=== PATIENT | male | born 1950 | race Hispanic/Latino ===

== ENCOUNTER 2018-01-22 07:00 | Day surgery (SDC) | payer OTHER ==
[2018-01-19 13:07] LABS: BASOPHILS % (AUTO) 0.5 % (0.0-5.0); EOSINOPHILS % (AUTO) 1.6 % (0.0-8.0); HEMATOCRIT 34.3 % (42-54); LYMPHOCYTES % (AUTO) 24.9 % (21.0-51.0); MEAN CORPUSCULAR HGB CONC 34.6 g/dL (32.0-36.0); MEAN CORPUSCULAR VOLUME 83.9 fL (79-99); MONOCYTES % (AUTO) 6.6 % (3.0-13.0); NEUTROPHILS % (AUTO) 66.4 % (40.0-77.0); PLATELET COUNT (AUTO) 200 K/uL (130-400); RED CELL DISTRIBUTION WIDTH 14.7 % (11.0-15.5); WHITE BLOOD COUNT (AUTO) 10.8 K/uL (4.8-10.8)
[2018-01-19 13:19] LABS: INR 1.74 (0.85-1.15); PARTIAL THROMBOPLASTIN TIME 25.4 SEC (26.3-35.5); PROTHROMBIN TIME 18.1 SEC (9.6-11.6)
[~2018-01-22] VITALS: Ht 170.2 cm; Wt 79.8 kg
[2018-01-22 07:05] VITALS: BP 99/54
[2018-01-22 07:25] LABS: BASOPHILS % (AUTO) 0.3 % (0.0-5.0); EOSINOPHILS % (AUTO) 1.2 % (0.0-8.0); HEMATOCRIT 33.5 % (42-54); LYMPHOCYTES % (AUTO) 17.7 % (21.0-51.0); MEAN CORPUSCULAR HEMOGLOBIN 28.9 pg (27.0-33.0); MEAN CORPUSCULAR HGB CONC 34.6 g/dL (32.0-36.0); MEAN CORPUSCULAR VOLUME 83.3 fL (79-99); MONOCYTES % (AUTO) 6.7 % (3.0-13.0); NEUTROPHILS % (AUTO) 74.1 % (40.0-77.0); NUCLEATED RED BLOOD CELLS 0.1 % (0.0-0.19); PLATELET COUNT (AUTO) 248 K/uL (130-400); RED BLOOD CELL COUNT(AUTO) 4.02 MIL/uL (4.50-6.20); RED CELL DISTRIBUTION WIDTH 14.7 % (11.0-15.5); WHITE BLOOD COUNT (AUTO) 11.1 K/uL (4.8-10.8)
[2018-01-22] MEDS ORDERED: SODIUM CHLORIDE 0.9% 1000ML 1,000 ML IV ONE (07:31)
[2018-01-22 07:41] LABS: INR 1.28 (0.85-1.15); PARTIAL THROMBOPLASTIN TIME 23.8 SEC (26.3-35.5); PROTHROMBIN TIME 13.4 SEC (9.6-11.6)
[2018-01-22] MEDS ORDERED: BUPIVACAINE/PF 0.25% 30ML VIAL IJ ONE (08:17)
[2018-01-22] MEDS ORDERED: CEFAZOLIN 1GM / D5W 50ML 0 ML ONE (08:17)
[2018-01-22] MEDS ORDERED: LIDOCAINE HCL 1% MDV 50ML VIAL ONE (08:17)
[2018-01-22] MEDS ORDERED: FENTANYL CITRATE PF 50 MCG/1 ML 2ML VIAL ONE (08:18)
[2018-01-22] MEDS ORDERED: MIDAZOLAM HCL 1 MG/ML 2ML VIAL ONE (08:18)
[2018-01-22] MEDS ORDERED: HEPARIN SODIUM 1000UNIT/ML 10ML VIAL ONE (08:34)
[2018-01-22] MEDS ORDERED: LIDOCAINE HCL/EPINEPHRINE 50 ML VIAL IJ ONE (08:40)
[2018-01-22] MEDS ORDERED: OCTYL 2-CYANOACRYLATE 1 EACH TP ONE (09:03)
[2018-01-22 09:35] VITALS: BP 104/56
[2018-01-22 09:50] VITALS: BP 106/56
[2018-01-22 10:05] VITALS: BP 117/57
[2018-01-22 10:20] VITALS: BP 112/58
[2018-01-22 10:35] VITALS: BP 110/58
== END 2018-01-22 10:49 | disposition home or self-care (01) ==
LOC: DAH 07:00
PROVIDERS: ATTEND Family Medicine
DX: C22.7 Other specified carcinomas of liver (principal); I25.10 Atherosclerotic heart disease of native coronary artery without angina pectoris; R09.89 Other specified symptoms and signs involving the circulatory and respiratory systems; E11.9 Type 2 diabetes mellitus without complications; E78.4 Other hyperlipidemia; M46.46 Discitis, unspecified, lumbar region; G06.1 Intraspinal abscess and granuloma; I80.8 Phlebitis and thrombophlebitis of other sites; R94.2 Abnormal results of pulmonary function studies; R76.12 Nonspecific reaction to cell mediated immunity measurement of gamma interferon antigen response without active tuberculosis; Z86.718 Personal history of other venous thrombosis and embolism; Z79.01 Long term (current) use of anticoagulants; Z87.442 Personal history of urinary calculi
CPT/HCPCS: 36415 ×2; 36561; 77001; 85025 ×2; 85610 ×2; 85730 ×2; C1788; J1644; J2250; J3010; J3490 ×2; J7030; 99152; 99153; J0690